=== PATIENT | male | born 1975 | race Hispanic/Latino ===

== ENCOUNTER 2016-06-08 07:17 | Day surgery (SDC) | payer MEDICAID ==
[2016-06-01 12:43] VITALS: BMI 37.3
[2016-06-08] MEDS ORDERED: Propofol 10 mg/ml Inj (20 ML) ONE (08:13)
[2016-06-08] MEDS ORDERED: Lactated Ringer's 1,000 ML IV SCH (09:00)
[2016-06-08 09:36] VITALS: PULSE 73
[2016-06-08 09:56] VITALS: BP 128/73; RESP 18; TEMP 98.2; O2SAT 98
== END 2016-06-08 10:05 | disposition home or self-care (01) ==
LOC: ENDO 07:17
PROVIDERS: ATTEND Internal Medicine
DX: K21.9 Gastro-esophageal reflux disease without esophagitis (principal); K29.50 Unspecified chronic gastritis without bleeding; B96.81 Helicobacter pylori [H. pylori] as the cause of diseases classified elsewhere; R05 Cough
CPT/HCPCS: 43239; 88305; 88312; 88342; J2001; J2704; J3010; J7040; J7120